=== PATIENT | male | born 1965 | race Caucasian/White ===

== ENCOUNTER 2021-07-23 13:48 | Inpatient (IN) | payer BC ==
[~2021-07-23] VITALS: Ht 190.5 cm; Wt 115.5 kg
[~2021-07-23 13:48] MED LIST: ASPIRIN EC81 MG PO; ATORVASTATIN CA40 MG PO; IMDUR ER TAB 3030 MG PO; LISINOPRIL5 MG PO; LOPRESSOR 25 MG25 MG PO; MAG-OX 400 TAB400 MG PO; NITROGLYCERIN0.4 MG SL; VENTOLIN HFA 66.7 GM INH
[2021-07-23 14:42] LABS: HEMOGLOBIN 18.7 gm/dl (14.0-17.5); RED BLOOD COUNT 6.32 M/UL (4.20-5.50); WHITE BLOOD COUNT 10.6 K/UL (4.5-11.0)
[2021-07-23 15:18] LABS: BUN/CREATININE RATIO 15 (0-10)
[2021-07-24] MEDS ORDERED: CLONIDINE HCL0.2 MG PO (00:22)
[2021-07-24] MEDS ORDERED: LISINOPRIL20 MG PO (00:22)
[2021-07-24 13:58] LABS: HEMOGLOBIN 17.6 gm/dl (14.0-17.5); RED BLOOD COUNT 5.94 M/UL (4.20-5.50); WHITE BLOOD COUNT 16.4 K/UL (4.5-11.0)
[2021-07-24 14:30] LABS: BUN/CREATININE RATIO 23 (0-10)
[2021-07-25 10:40] LABS: HEMOGLOBIN 18.7 gm/dl (14.0-17.5); RED BLOOD COUNT 6.26 M/UL (4.20-5.50)
[2021-07-25 10:47] LABS: BUN/CREATININE RATIO 26 (0-10)
[2021-07-26 06:30] LABS: HEMOGLOBIN 17.1 gm/dl (14.0-17.5); RED BLOOD COUNT 5.86 M/UL (4.20-5.50); WHITE BLOOD COUNT 9.6 K/UL (4.5-11.0)
[2021-07-26 06:55] LABS: BUN/CREATININE RATIO 34 (0-10)
--- NOTE | 2021-07-26 12:31 | NUR ---
REPEAT BLOOD PRESSURE AFTER AM MEDS AND B/P 200/70 IS 166/85 PT RESTING AND DENIES NEEDS.
[2021-07-26] MEDS ORDERED: HYDROCHLOROTHIA25 MG PO (16:02)
[2021-07-26] MEDS ORDERED: NIFEDIPINE ER30 M1 PO (16:02)
[2021-07-26] MEDS ORDERED: OMNICEF 300 MG300 MG PO (16:02)
[2021-07-26] MEDS ORDERED: HUMALOG100 UNIT/3 SC (16:02)
[2021-07-26] MEDS ORDERED: LANTUS SOL100 UNIT/1 SQ (16:02)
[2021-07-26] MEDS ORDERED: HUMIBID LA TAB600 MG PO (16:02)
== END 2021-07-26 17:25 | disposition home or self-care (01) | DRG 189 ==
LOC: ER1 13:48 → MED SURG 4 21:12 → CDU 21:12 → MED SURG 4 22:51
PROVIDERS: Internal Medicine; Physician Assistant; ADMIT Internal Medicine
DX: J96.01 Acute respiratory failure with hypoxia (principal); J45.901 Unspecified asthma with (acute) exacerbation; I16.0 Hypertensive urgency; E78.5 Hyperlipidemia, unspecified; I25.10 Atherosclerotic heart disease of native coronary artery without angina pectoris; Z20.822 Contact with and (suspected) exposure to COVID-19; E66.9 Obesity, unspecified; I25.5 Ischemic cardiomyopathy; E11.65 Type 2 diabetes mellitus with hyperglycemia; F17.210 Nicotine dependence, cigarettes, uncomplicated; I10 Essential (primary) hypertension; Z95.5 Presence of coronary angioplasty implant and graft; Z83.3 Family history of diabetes mellitus; Z80.0 Family history of malignant neoplasm of digestive organs; Z80.3 Family history of malignant neoplasm of breast; Z79.01 Long term (current) use of anticoagulants; Z79.82 Long term (current) use of aspirin; Z68.31 Body mass index [BMI] 31.0-31.9, adult
CPT/HCPCS: ECHO; 0240U; 36415; 36600; 71045; 80048; 80053; 81001; 82550; 82553; 82785; 82803; 82962; 83036; 84439; 84443; 84484; 85025; 85379; 87205; 93005; 93306; 94640; 94760; 96372; 96374; 96375; 96376; 99285; G0378; J0360; J0456; J0696; J1650; J2920; J2930; J7030; Q9967

== ENCOUNTER → 2021-08-16 | Outpatient (CLI) | payer BC ==
[~2021-08-16] MED LIST changes: +CLONIDINE HCL0.2 MG PO; +HUMALOG100 UNIT/3 SC; +HUMIBID LA TAB600 MG PO; +HYDROCHLOROTHIA25 MG PO; +LANTUS SOL100 UNIT/1 SQ; +LISINOPRIL20 MG PO; +NIFEDIPINE ER30 M1 PO; +OMNICEF 300 MG300 MG PO
== END ==
LOC: HEART 5 10:39
DX: J45.40 Moderate persistent asthma, uncomplicated (principal)
CPT/HCPCS: 94060; 94729; 95012